=== PATIENT | female | born 1985 | race Caucasian/White ===

== ENCOUNTER 2018-10-02 13:02 | Emergency (ER) | payer SELFPAY ==
[2018-10-02] MEDS ORDERED: Ondansetron ODT 4 MG TAB ONE (14:29)
[2018-10-02] MEDS ORDERED: Ketorolac Tromethamine 60 MG/2 ML VIAL ONE (14:49)
[2018-10-02] MEDS ORDERED: cefTRIAXone\\ROCEPHIN 1 GM VIAL ONE (14:49)
--- NOTE | 2018-10-02 15:57 | RAD ---
CHEST TWO VIEWS: 10/02/18 HISTORY: Cough. Heart size and mediastinum are within normal limits. The lungs are clear of infiltrates. No bony find ings. IMPRESSION: No active intrathoracic disease. POS: [facility]
== END 2018-10-02 15:18 | disposition home or self-care (01) ==
LOC: MADERS 13:02
DX: J20.9 Acute bronchitis, unspecified (principal); R09.1 Pleurisy; F17.210 Nicotine dependence, cigarettes, uncomplicated; F41.9 Anxiety disorder, unspecified
CPT/HCPCS: 71046; 87804; 93005; 96372; J0696; J1885; Q0162

== ENCOUNTER 2019-02-12 10:30 | Emergency (ER) | payer OTHER, SELFPAY ==
[2019-02-12 10:51] LABS: Bilirubin Negative (Negative); Blood, Urine Negative (Negative); Clarity Clear (Clear); Glucose, Urine (Dipstick) Negative (Negative); Leukocyte Negative (Negative); Nitrite Negative (Negative); Protein, Urine (Dipstick) Negative (Neg-Trace); Specific Gravity, Urine 1.003 (1.002-1.036); Urobilinogen 0.2 mg/dL (0.2-1.0); pH, Urine 5.5 (5.0-9.0)
--- NOTE | 2019-02-12 10:57 | RAD ---
PORTABLE CHEST: Date: 02/12/19 HISTORY: Dyspnea. FINDINGS: The lungs are clear. Heart and mediastinum unremarkable. IMPRESSION: No acute abnormality. POS: [facility]
[2019-02-12 11:00] LABS: Amphetamine Not Detected (NotDetected); Barbiturates Screen Not Detected (NotDetected); Benzodiazepine Screen Not Detected (NotDetected); Cocaine Metabolite Screen Not Detected (NotDetected); Medtox Control Line Valid? VALID (VALID); Methadone Not Detected (NotDetected); Methamphetamine Not Detected (NotDetected); Opiate Screen Not Detected (NotDetected); Oxycodone Screen Not Detected (NotDetected); Phencyclidine (PCP) Not Detected (NotDetected); THC/Cannabinoid Screen Not Detected (NotDetected); Tricyclic Screen Not Detected (NotDetected)
[2019-02-12 11:06] LABS: #Basophils 0.1 thou/uL (0.0-0.2); #Eosinphils 0.2 thou/uL (0.0-0.7); #Lymphocytes 2.2 thou/uL (1.20-3.40); #Monocytes 0.6 thou/uL (0.11-0.59); %Basophils 1.7 % (0.0-1.0); %Eosinophils 2.8 % (0.0-10.0); %Lymphocytes 36.2 % (21.0-51.0); %Monocytes 9.2 % (0.0-10.0); %Neutrophils 50.1 % (42.0-75.0); Hemoglobin 14.3 g/dL (12.0-16.0); Mean Corpuscular HGB CONC 32.6 g/dL (32.0-36.0); Mean Corpuscular Hemoglobin 30.4 pg (27.0-31.0); Mean Platelet Volume 7.6 fL (7.4-10.4); Platelet Count 223 thou/uL (130-400); Red Blood Cell (RBC) Count 4.72 mill/uL (4.20-5.40)
[2019-02-12 11:20] LABS: ALT (SGPT) 19 U/L (8-55); AST (SGOT) 24 U/L (5-34); Albumin 4.7 g/dL (3.5-5.0); Alcohol 234 mg/dL (Less than 10); Alkaline Phosphatase 61 U/L (40-150); Anion Gap 20 mmol/L (10-20); BUN (Urea Nitrogen) 7 mg/dL (7.0-18.7); Bilirubin, Total 0.2 mg/dL (0.2-1.2); Calc. Creatinine Clearance 0 mL/min (70-130); Carbon Dioxide 14 mmol/L (22-29); Chloride 114 mmol/L (98-107); Estimated GFR-MDRD Greater than 90; Globulin 2.7 g/dL (2.4-3.5); Potassium 4.2 mmol/L (3.5-5.1); Protein, Total 7.4 g/dL (6.0-8.3); Sodium 144 mmol/L (136-145)
[2019-02-12 11:26] LABS: Glucose 49 mg/dL (70-105)
== END 2019-02-12 11:20 | disposition left against medical advice (07) ==
LOC: MADERS 10:30
DX: F10.129 Alcohol abuse with intoxication, unspecified (principal); E16.2 Hypoglycemia, unspecified; F41.9 Anxiety disorder, unspecified; F17.210 Nicotine dependence, cigarettes, uncomplicated; Y90.7 Blood alcohol level of 200-239 mg/100 ml
CPT/HCPCS: 71045; 80053; 80306; 80307; 81003; 84484; 85025; 85379; 93005; 94760